=== PATIENT | female | born 1980 | race Caucasian/White ===

== ENCOUNTER 2017-10-04 19:46 | Emergency (ER) | payer BC ==
[~2017-10-04] VITALS: Ht 172.7 cm; Wt 118.4 kg
[~2017-10-04 19:46] MED LIST: CIPROFLOXACIN500 M1 PO; CLARITIN10 M3 PO; FLAGYL500 MG PO; FLONASE 0.05%50 MCG NASAL; NOHOMEMEDICATIONS; NORCO 5-325 TA1 EACH PO; XANAX 0.25 MG0.25 MG PO; ZOFRAN4 MG PO
[2017-10-04] MEDS ORDERED: BUTALB-APAP-CA1 EACH PO (20:09)
[2017-10-04] MEDS ORDERED: BACTROBAN CREAM30 G1 TOP (20:10)
[2017-10-04] MEDS ORDERED: CYCLOBENZAPRINE5 MG PO (20:10)
[2017-10-04] MEDS ORDERED: VYVANSE40 MG PO (20:11)
[2017-10-04 20:56] LABS: ABSOLUTE BASOPHILS 0.1 thou/uL (0.0-0.2); ABSOLUTE EOSINOPHILS 0.5 thou/uL (0.0-0.7); ABSOLUTE LYMPHOCYTES 3.8 thou/uL (0.8-5.3); ABSOLUTE MONOCYTES 0.6 thou/uL (0.0-1.2); ABSOLUTE NEUTROPHILS 3.9 thou/uL (1.6-8.1); BASOPHILS 1.2 %; EOSINOPHILS 5.8 %; HEMATOCRIT 40.6 % (37.0-47.0); HEMOGLOBIN 13.9 gm/dL (12.0-15.0); LYMPHOCYTES 42.6 %; MCH 30.8 pg (26.0-34.0); MCHC 34.3 g/dL (28.0-37.0); MCV 89.6 fL (80.0-100.0); MONOCYTES 7.2 %; MPV 8.1 fl. (7.2-11.1); NUCLEATED RBCS 0 /100WBC; PLATELET COUNT* 281 thou/uL (150-400); POLYS 43.2 %; RBC 4.53 mil/uL (4.20-5.00); RDW-CV 12.9 % (10.5-14.5); WBC 8.9 thou/uL (4.0-11.0)
[2017-10-04 21:02] LABS: CALCIUM 8.6 mg/dL (8.5-10.1); CREATININE 0.9 mg/dL (0.6-1.3); POTASSIUM 3.8 mmol/L (3.5-5.1)
[2017-10-04 21:06] LABS: ALBUMIN 3.7 g/dL (3.4-5.0); TOTAL BILIRUBIN 0.3 mg/dL (<0.1-1.0); TOTAL PROTEIN 7.1 g/dL (6.4-8.2)
[2017-10-04] MEDS ORDERED: PHENERGAN 25 MG25 M1 PO (23:16)
[2017-10-04] MEDS ORDERED: ACETAMINOPHEN-1 EAC1 PO (23:16)
[2017-10-04 23:37] LABS: URINE BILIRUBIN NEGATIVE (Negative); URINE BLOOD 1+ (Negative); URINE CLARITY CLEAR; URINE COLOR YELLOW; URINE GLUCOSE-RANDOM NEGATIVE (Negative); URINE KETONES NEGATIVE (Negative); URINE LEUKOCYTES-REFLEX NEGATIVE (Negative); URINE NITRITE-REFLEX NEGATIVE (Negative); URINE PROTEIN NEGATIVE (Negative); URINE SPECIFIC GRAVITY >= 1.030 (1.005-1.030); URINE UROBILINOGEN 0.2 E.U./dl (0.2-1.0)
[2017-10-04 23:43] LABS: AMP/METHAMP Negative (Negative); BARBITURATES POSITIVE (Negative); BENZODIAZEPINES Negative (Negative); COCAINE Negative (Negative); METHADONE Negative (Negative); OPIATES Negative (Negative); PCP Negative (Negative); THC Negative (Negative)
[2017-10-05 00:30] VITALS: BP 132/84
[2017-10-05 00:44] LABS: CASTS None Seen /LPF (None Seen); SQUAMOUS 4-10 Moderate /LPF (0-3)
[2017-10-05 00:45] LABS: CRYSTALS None Seen /LPF (None Seen); URINE RBC 3-10 Few /HPF (0-2); URINE WBC-REFLEX 0-5 Rare /HPF (0-5)
== END 2017-10-05 00:30 | disposition home or self-care (01) ==
LOC: M.ERS 19:46
PROVIDERS: Personal Emergency Response Attendant
DX: R51 Headache (principal); E03.9 Hypothyroidism, unspecified; Z88.2 Allergy status to sulfonamides; Z88.6 Allergy status to analgesic agent

== ENCOUNTER 2020-06-10 16:23 | Emergency (ER) | payer BC ==
[~2020-06-10] VITALS: Ht 172.7 cm; Wt 129.3 kg
[~2020-06-10 16:23] MED LIST changes: +ACETAMINOPHEN-1 EAC1 PO; +BACTROBAN CREAM30 G1 TOP; +BUTALB-APAP-CA1 EACH PO; +CYCLOBENZAPRINE5 MG PO; +PHENERGAN 25 MG25 M1 PO; +VYVANSE40 MG PO
[2020-06-10] MEDS ORDERED: WELLBUTRIN 75 M75 M1 PO (16:40)
[2020-06-10] MEDS ORDERED: BIOTIN1 MG PO (16:41)
[2020-06-10] MEDS ORDERED: AUGMENTIN 875-1 EACH PO ×2 (17:49→17:53)
[2020-06-10 18:01] VITALS: BP 137/76
== END 2020-06-10 18:01 | disposition home or self-care (01) ==
LOC: M.ERS 16:23
DX: G43.909 Migraine, unspecified, not intractable, without status migrainosus (principal); E03.9 Hypothyroidism, unspecified; Z98.890 Other specified postprocedural states; Z90.49 Acquired absence of other specified parts of digestive tract; Z88.5 Allergy status to narcotic agent; Z88.2 Allergy status to sulfonamides